=== PATIENT | female | born 1940 | race Caucasian/White ===

== ENCOUNTER 2018-02-16 00:24 | Emergency (ER) | payer MEDICARE ==
[~2018-02-16] VITALS: Ht 157.4 cm; Wt 54.4 kg
[~2018-02-16 00:24] MED LIST: ACETAMINOPHEN-H1 TA2 PO; Elimite 5%60 GM T; MAPAP325 MG PO; Synthroid,Levo50 MCG PO; WALKER
[2018-02-16 01:23] VITALS: BP 160/60
== END 2018-02-16 01:56 | disposition home or self-care (01) ==
LOC: ED 00:24
DX: R25.3 Fasciculation (principal); T43.3X5A Adverse effect of phenothiazine antipsychotics and neuroleptics, initial encounter; Z90.49 Acquired absence of other specified parts of digestive tract; Z98.51 Tubal ligation status; Y92.9 Unspecified place or not applicable

== ENCOUNTER → 2018-02-22 | Outpatient (CLI) | payer MEDICARE | END | disposition home or self-care (01) | LOC: US 12:00 | DX: I65.23 Occlusion and stenosis of bilateral carotid arteries (principal) ==

== ENCOUNTER → 2018-07-17 | Outpatient (CLI) | payer MEDICARE ==
[~2018-07-17] MED LIST changes: +OMEPRAZOLE MAGN20 MG PO
--- NOTE | ~2018-07-17 | SLPIE ---
[place], [place] SCRUBBING MACHINE OPERATOR INITIAL EVALUATION NAME: MICHAEL OLIVO UNIT #: [id number] ROOM: DOCTOR: DEMARIO JETT MD Speech Language Pathology Initial Evaluation Page 1 1 of Patient Name: MICHAEL OLIVO Date: 07/17/2018 12:20 PM : 1940 SOC Date: 07/17/2018 [facility] Provider #: [id number] Treating Clinician: CLEVELAND Michel-MEREDITH Referring Physician: DEMARIO JETT Patient Information Address: [address] [place] [address] Physician: DEMARIO JETT Physician #: City, [facility], Zip: [place], [place] [address] Occupation: Unknown # of Approved Visits: 0 Gender: Female Rn Patient Care: TIFFANY OLIVO Medicare #: [id number] Rehabilitation Information / History Onset Date Code Description Primary Diagnosis: 07/17/2018 A0000 NO DIAGNOSIS SENT TO THE [facility] Subjective Comments: Initial evaluation created to initiate the electronic medical record. Please see Vig[employer] for details. Rehabilitation Information / History Clinical Findings Functional Goals Functional Limitation Reporting Swallowing G8996 - Swallowing functional limitation, current status at therapy episode outset and at reporting intervals Current Status: CH - 0 percent impaired, limited or restricted G8997 - Swallowing functional limitation, projected goal status, at therapy episode outset, at reporting intervals, and at discharge or to end reporting Goal Status: CI - At least 1 percent but less than 20 percent impaired, limited or restricted G8998 - Swallowing functional limitation, discharge status, at discharge from therapy or to end reporting Discharge Status: CH - 0 percent impaired, limited or restricted 07/17/2018 12:21:09 PM ANA Michel Date/Time [place], [place] SCRUBBING MACHINE OPERATOR INITIAL EVALUATION NAME: MICHAEL OLIVO UNIT #: [id number] ROOM: DOCTOR: DEMARIO JETT MD [facility] License #: [id number] CM:YAYA 22 [facility]
--- NOTE | ~2018-07-17 | SLPPOC ---
[place], [place] EDITOR SOUND PLAN OF CARE NAME: MICHAEL OLIVO UNIT #: [id number] ROOM: DOCTOR: DEMARIO JETT MD Speech Language Pathology Plan of Care Page 1 1 (Initial Evaluation) of Patient Name: MICHAEL OLIVO Date: 07/17/2018 12:20 PM : 1940 SOC Date: 07/17/2018 [facility] Provider #: [id number] Treating Clinician: CLEVELAND Michel-EDITOR SOUND Referring Physician: DEMARIO JETT Medicare #: [id number] Visits From SOC: Onset Date Description Code Primary Diagnosis: 07/17/2018 A0000 NO DIAGNOSIS SENT TO THE [facility] Subjective Comments: Initial evaluation created to initiate the electronic medical record. Please see RightScale for details. Initial Level Goals Functional Limitation Reporting Swallowing G8996 - Swallowing functional limitation, current status at therapy episode outset and at reporting intervals Current Status: CH - 0 percent impaired, limited or restricted G8997 - Swallowing functional limitation, projected goal status, at therapy episode outset, at reporting intervals, and at discharge or to end reporting Goal Status: CI - At least 1 percent but less than 20 percent impaired, limited or restricted G8998 - Swallowing functional limitation, discharge status, at discharge from therapy or to end reporting Discharge Status: CH - 0 percent impaired, limited or restricted 07/17/2018 12:21:09 PM DEMARIO JETT Date/Time CLEVELAND Michel-MEREDITH Date I certify the need for these services furnished under this plan of treatment while under my care. State License #: [id number] CM:SLPPOC 1224 1223 [facility] THER[facility]
--- NOTE | ~2018-07-17 | PROC NOTE ---
[place], [place] PROCEDURE NOTE NAME: MICHAEL OLIVO UNIT #: [id number] ROOM: DOCTOR: BARBARA CAMEJO BIRTHDATE: [birth year] DOS: 07/17/2018 MODIFIED BARIUM SWALLOW ORDERING PHYSICIAN: Dr. Frey. RADIOLOGIST: Dr. Cordova. BACKGROUND INFORMATION: The patient is an 78-year-old female who is seen for modified barium swallow. This test was ordered to view the pharyngeal phase of the swallow. The patient was alert and oriented for the study and reported a feeling of globus for the past several months, which at times results in vomiting to get the foods up. The patient did report a history of reflux. Oral peripheral examination revealed presence of upper denture with adequate fit reported. Lingual, labial, and buccal skills were within normal limits in terms of strength, range of motion, and coordination. The patient was able to volitionally cough and swallow. Respiratory status was within normal limits. The patient reported that she currently consumes a regular diet and thin liquids. METHODS AND MATERIALS USED FOR THE EXAM: The patient was positioned in the lateral plane and the exam was viewed under fluoroscopy. The patient was presented with a variety of consistencies to assess swallowing skills including applesauce mixed with barium presented in half teaspoon amounts, barium-coated cookie and sandwich taken in bite size pieces and thin liquid barium taken by cup. ORAL PHASE: Unremarkable. PHARYNGEAL PHASE: Unremarkable. ESOPHAGEAL PHASE: This phase of the swallow was not formally assessed during this exam. IMPRESSIONS AND RECOMMENDATIONS: Based upon assessment results, this 78-year-old patient presented with oral and pharyngeal swallowing skills that are within normal limits. Recommend she remain on present diet and continue to implement safe swallow precautions such as small bites and sips, chewing thoroughly, alternating liquids and solids and moistening foods as appropriate. Recommend patient follow reflux precautions as well. Speech Pathology followup is not warranted. Follow up with physician is recommended to further assess esophageal functioning. Results and recommendations were shared with the patient who verbalized understanding. Thank you very much for this referral. Should you have any questions regarding this patient, please contact the speech pathologist at [phone]. [place], [place] PROCEDURE NOTE NAME: MICHAEL OLIVO UNIT #: [id number] ROOM: DOCTOR: BARBARA CAMEJO BIRTHDATE: [birth year] BARBARA CAMEJO CM:PROCNOTE:PROCEDURE NOTE [id number] DEMARIO CAMEJO
--- NOTE | ~2018-07-17 | SLPPN ---
[place], [place] SORTING COWS WORKER PROGRESS NOTE NAME: MICHAEL OLIVO UNIT #: [id number] ROOM: DOCTOR: DEMARIO JETT MD Speech Language Pathology Treatment Note Page 1 1 of Patient Name: MICHAEL OLIVO Date: 07/17/2018 12:21 PM : 1940 SOC Date: 07/17/2018 [facility] Provider #: [id number] Treating Clinician: CLEVELAND Michel-SORTING COWS WORKER Referring Physician: DEMARIO JETT Onset Date Description Code Primary Diagnosis: 07/17/2018 A0000 NO DIAGNOSIS SENT TO THE [facility] Time In: 10:30 AM Time Out: 11:30 AM SORTING COWS WORKER Interventions and CPT Codes Consisted of: CPT Code Modifiers Minutes Units MOTION FLUOROSCOPY/SWALLOW 60211 60 1 Total Minutes: 60 Total Timed Minutes: 0 Total Untimed Minutes: 60 Total Units: 1 Total Timed Units: 0 Total Untimed Units: 1 07/17/2018 12:22:00 PM CLEVELAND Michel-MEREDITH Date/Time State License #: [id number] CM:VIN 1224 1224 [facility] THER[facility]
== END | disposition home or self-care (01) ==
LOC: RAD/SH 09:54
DX: R13.10 Dysphagia, unspecified (principal)

== ENCOUNTER → 2019-03-05 | Day surgery (SDC) | payer MEDICARE ==
[~2019-03-05] VITALS: Ht 157.4 cm; Wt 53.5 kg
--- NOTE | ~2019-03-05 | O ---
[place], [place] OPERATIVE NOTE NAME: MICHAEL OLIVO [facility] #: [id number] UNIT #: [id number] ROOM: DOCTOR: SURENDRA OLIVO MD BIRTHDATE: [birth year] DOS: 03/05/2019 PREOPERATIVE DIAGNOSIS: Cataract, left eye. POSTOPERATIVE DIAGNOSIS: Cataract, left eye. OPERATION: Extracapsular cataract extraction by phacoemulsification with posterior chamber intraocular lens implantation, left eye. ANESTHESIA: Monitored standby. OPERATIVE FINDINGS AND PROCEDURE: 2% Xylocaine topical anesthetic gel was applied to the eye in the preop area. The patient was taken to the operating room and prepped and draped in the standard fashion for sterile intraocular surgery. A time out procedure was performed verifying correct patient, correct site and corrects lens with Willi Olivo M.D. The operating microscope was swung into position and the lid speculum was inserted. Using a 15-degree angulated super blade, a paracentesis was made through clear cornea. Shugarcaine, a mixture of lidocaine and epinephrine, was injected into the anterior chamber. Viscoelastic was used to fill the anterior chamber. Using a metal keratome a 2.4 mm self-sealing clear corneal cataract incision was made temporally at the limbus. Using a pre-bent 25 gauge cystotome needle, a standard continuous curvilinear capsulorrhexis was performed. The anterior capsule was removed with forceps. The lens nucleus was hydrodissected and phacoemulsified in the posterior chamber. Cortical material was removed with the irrigation aspiration hand piece and the posterior capsule was then polished with a curet under irrigation. The posterior chamber and capsular bag were filled with viscoelastic. A posterior chamber intraocular lens manufactured by: [employer], Model #[id number], 19.0 diopters in strength were then inserted into the posterior chamber and within the capsular bag using the lens cartridge and injector system. Viscoelastic was removed using the irrigation aspiration handpiece. The anterior chamber was filled with balanced salt solution through the paracentesis. Both the paracentesis site and cataract incisions were hydrated with BSS and verified to be water-tight and self-sealing. Cefuroxime 1 mg/0.1 mL was injected into the anterior chamber through the paracentesis site. The incision checked to be water-tight using a Weck-Juli sponge. The integrity of the cataract wound and ocular tension were checked. Lid speculum and drapes were removed. The patient was transferred from the operating room to the recovery room in satisfactory condition. [place], [place] OPERATIVE NOTE NAME: MICHAEL OLIVO UNIT #: [id number] ROOM: DOCTOR: SURENDRA OLIVO MD BIRTHDATE: [birth year] SURENDRA OLIVO MD CM:OPRECORD:OPERATIVE NOTE 1346 1643 SURENDRA OLIVO MD 03/05/19 1641 interface
[2019-03-05 13:17] VITALS: BP 145/56
[2019-03-05 13:44] VITALS: BP 122/38
[2019-03-05 13:59] VITALS: BP 114/57
[2019-03-05 14:13] VITALS: BP 130/57
== END | disposition home or self-care (01) ==
LOC: SDC 02-28 08:45
DX: H25.812 Combined forms of age-related cataract, left eye (principal); K21.9 Gastro-esophageal reflux disease without esophagitis; M19.90 Unspecified osteoarthritis, unspecified site; Z88.8 Allergy status to other drugs, medicaments and biological substances; Z79.82 Long term (current) use of aspirin; Z79.899 Other long term (current) drug therapy; Z98.890 Other specified postprocedural states; Z98.51 Tubal ligation status; Z90.49 Acquired absence of other specified parts of digestive tract; Z85.3 Personal history of malignant neoplasm of breast; Z80.52 Family history of malignant neoplasm of bladder

== ENCOUNTER → 2019-04-09 | Day surgery (SDC) | payer MEDICARE ==
[~2019-04-09] VITALS: Ht 157.4 cm; Wt 53.5 kg
--- NOTE | ~2019-04-09 | O ---
[place], [place] OPERATIVE NOTE [id number] UN[facility] #: [id number] ROOM: DOCTOR: SURENDRA OLIVO MD BIRTHDATE: [birth year] DOS: 04/09/2019 PREOPERATIVE DIAGNOSIS: Cataract, right eye. POSTOPERATIVE DIAGNOSIS: Cataract, right eye. OPERATION: Extracapsular cataract extraction by phacoemulsification with posterior chamber intraocular lens implantation, right eye. . ANESTHESIA: Monitored standby. OPERATIVE FINDINGS AND PROCEDURE: 2% Xylocaine topical anesthetic gel was applied to the eye in the preop area. The patient was taken to the operating room and prepped and draped in the standard fashion for sterile intraocular surgery. A time out procedure was performed verifying correct patient, correct site and corrects lens with Willi Olivo M.D. The operating microscope was swung into position and the lid speculum was inserted. Using a Sharona paracentesis blade, a paracentesis was made through clear cornea. A mixture preservative-free lidocaine 4% and preservative-free epinephrine 1:1000 in balanced salt solution was injected into the anterior chamber. Viscoelastic was used to fill the anterior chamber. Using a metal keratome a 2.4 mm self-sealing clear corneal cataract incision was made temporally at the limbus. Using a pre-bent 25 gauge cystotome needle, a standard continuous curvilinear capsulorrhexis was performed. The anterior capsule was removed with forceps. The lens nucleus was hydrodissected and phacoemulsified in the posterior chamber. Cortical material was removed with the irrigation aspiration hand piece and the posterior capsule was then polished with a curet under irrigation. The posterior chamber and capsular bag were filled with viscoelastic. A posterior chamber intraocular lens manufactured by: [employer], Model #[id number], and 18.5 diopters in strength were then inserted into the posterior chamber and within the capsular bag using the lens cartridge and injector system. Viscoelastic was removed using the irrigation aspiration handpiece. The anterior chamber was filled with balanced salt solution through the paracentesis. Both the paracentesis site and cataract incisions were hydrated with BSS and verified to be water-tight and self-sealing. Cefuroxime 1 mg/0.1 mL was injected into the anterior chamber through the paracentesis site. The incision checked to be water-tight using a Weck-Juli sponge. The integrity of the cataract wound and ocular tension were checked. Lid speculum and drapes were removed. The patient was transferred from the operating room to the recovery room in satisfactory condition. [place], [place] OPERATIVE NOTE NAME: MICHAEL OLIVO UNIT #: [id number] ROOM: DOCTOR: SURENDRA OLIVO MD BIRTHDATE: [birth year] SURENDRA OLIVO MD CM:OPRECORD:OPERATIVE NOTE 1419 1650 SURENDRA OLIVO MD 04/09/19 1651 interface
[2019-04-09 12:40] VITALS: BP 148/48
[2019-04-09 13:32] VITALS: BP 132/49
[2019-04-09 13:45] VITALS: BP 140/54
[2019-04-09 13:58] VITALS: BP 134/59
== END | disposition home or self-care (01) ==
LOC: SDC 04-07 11:45
DX: H25.811 Combined forms of age-related cataract, right eye (principal); K21.9 Gastro-esophageal reflux disease without esophagitis; Z98.890 Other specified postprocedural states; Z85.3 Personal history of malignant neoplasm of breast; Z79.899 Other long term (current) drug therapy; Z80.52 Family history of malignant neoplasm of bladder

== ENCOUNTER → 2020-03-17 | Outpatient (CLI) | payer MEDICARE ==
[~2020-03-17] MED LIST changes: +ASPIRIN81 M1 PO; +MULTIVITAMIN1 EACH PO; +VITAMIN B12-FO1 EACH PO; +VITAMIN C500 M4 PO; +VITAMIN D375 MCG PO
--- NOTE | 2020-03-17 08:04 | NUR ---
INFORMED CONSENT OBTAINED FOR A LEXISCAN STRESS TEST WITH DR. MONTANO. RESTING EKG NSR WITH A HT RT OF 68, BP OF 122/60. BREATH SOUNDS CLEAR JOSH, POX 96% VIA RA. COMPLETED ONE MINUTE OF A LEXISCAN PROTOCOL RECEIVING LEXISCAN 0.4 MG OVER 10 SECONDS. C/O NAUSEA AND BEING SHAKEY THAT WAS RELIEVED IN RECOVERY. HAD A PEAK HT RT OF 92, WITH A BP OF 130/48. LAST RECOVERY HT RT OF 83, WITH A BP OF 120/62. AWAITING NUCLEAR IMAGING IN STABLE CONDITION.
== END | disposition home or self-care (01) ==
LOC: CARD 00:39
DX: R07.9 Chest pain, unspecified (principal); R53.81 Other malaise

== ENCOUNTER → 2023-02-02 | Outpatient (CLI) | payer MEDICARE ==
[~2023-02-02] MED LIST changes: +ATORVASTATIN CA40 M1 PO; +METOPROLOL SUCC25 M2 PO; +OMNICEF300 MG PO
[2023-02-02 14:22] LABS: BUN 14 mg/dl (9-23)
== END | disposition home or self-care (01) ==
LOC: LAB 13:27
PROVIDERS: ATTEND Specialist
DX: R42 Dizziness and giddiness (principal)

== ENCOUNTER → 2023-02-09 | Outpatient (CLI) | payer MEDICARE | END | disposition home or self-care (01) | LOC: MRI 00:46 | PROVIDERS: ATTEND Specialist | DX: I67.89 Other cerebrovascular disease (principal); R42 Dizziness and giddiness ==

== ENCOUNTER → 2024-01-01 | Outpatient (CLI) | payer MEDICARE ==
[~2024-01-01] MED LIST changes: +ATIVAN0.5 MG PO; +DEPAKOTE ER250 MG PO; +GOOD SENSE ASP325 MG PO; +OMEPRAZOLE40 MG PO; +TRAZODONE50 MG PO
== END | disposition home or self-care (01) ==
LOC: US 01:25
PROVIDERS: ATTEND Physician Assistant
DX: R74.8 Abnormal levels of other serum enzymes (principal); Z90.49 Acquired absence of other specified parts of digestive tract

== ENCOUNTER → 2024-01-10 | Outpatient (CLI) | payer MEDICARE ==
[2024-01-10 11:15] LABS: TOTAL PROTEIN 7.1 gm/dL (6.0-8.0)
[2024-01-11 03:07] LABS: ALKALINE PHOSPHATASE, SERUM 417 IU/L (44-121)
[2024-01-11 17:07] LABS: BONE FRACTION 23 % (14-68); INTESTINAL FRACTION 1 % (0-18); LIVER FRACTION 76 % (18-85)
== END | disposition home or self-care (01) ==
LOC: LAB 10:23
PROVIDERS: ATTEND Physician Assistant
DX: R10.9 Unspecified abdominal pain (principal)

== ENCOUNTER → 2024-05-06 | Outpatient (CLI) | payer MEDICARE ==
[2024-05-06 13:10] LABS: TOTAL PROTEIN 6.6 gm/dL (6.0-8.0)
[2024-05-07 04:07] LABS: ALPHA-1-ANTITRYPSIN, SERUM 148 mg/dL (101-187); IMMUNOGLOBULIN G, QNT 1268 mg/dL (586-1602); IMMUNOGLOBULIN M, QNT 73 mg/dL (26-217)
[2024-05-07 15:07] LABS: ANTI-SMOOTH MUSCLE ANTIBODY 9 Units (0-19)
== END | disposition home or self-care (01) ==
LOC: LAB 12:07
PROVIDERS: ATTEND Physician Assistant
DX: R79.89 Other specified abnormal findings of blood chemistry (principal); Z79.899 Other long term (current) drug therapy

== ENCOUNTER → 2024-06-30 | Outpatient (CLI) | payer MEDICARE ==
[2024-06-30 12:17] LABS: TOTAL PROTEIN 6.9 gm/dL (6.0-8.0)
== END | disposition home or self-care (01) ==
LOC: LAB 11:25
PROVIDERS: ATTEND Physician Assistant
DX: R79.89 Other specified abnormal findings of blood chemistry (principal)

== ENCOUNTER → 2025-01-07 | Outpatient (CLI) | payer MEDICARE ==
[2025-01-07 13:17] LABS: TOTAL PROTEIN 6.7 gm/dL (6.0-8.0)
== END | disposition home or self-care (01) ==
LOC: LAB 12:38
PROVIDERS: ATTEND Physician Assistant
DX: R79.89 Other specified abnormal findings of blood chemistry (principal)

== ENCOUNTER → 2025-02-11 | Outpatient (CLI) | payer MEDICARE ==
[~2025-02-11] MED LIST changes: +LORAZEPAM0.5 M1 PO; +Regadenoson 0.4 MG/5 ML SYR IV ONE; +Technetium Tc 99M Tetrofosmi 0.23 MG KIT IJ SCH
== END | disposition home or self-care (01) ==
LOC: CARD 00:58
PROVIDERS: ATTEND Nurse Practitioner Family
DX: R06.02 Shortness of breath (principal); I10 Essential (primary) hypertension; I63.9 Cerebral infarction, unspecified; R07.89 Other chest pain; R06.09 Other forms of dyspnea

== ENCOUNTER → 2025-05-21 | Outpatient (CLI) | payer MEDICARE ==
[~2025-05-21] MED LIST changes: -Regadenoson 0.4 MG/5 ML SYR IV ONE; -Technetium Tc 99M Tetrofosmi 0.23 MG KIT IJ SCH
== END | disposition home or self-care (01) ==
LOC: CARD 09:49
PROVIDERS: ATTEND Physician Assistant
DX: I49.49 Other premature depolarization (principal)

== ENCOUNTER 2025-05-25 14:31 | Emergency (ER) | payer MEDICARE ==
[~2025-05-25] VITALS: Wt 57.2 kg
[2025-05-25] MEDS ORDERED: SODIUM CHLORIDE 0.9% 1,000 ML IV ONE (14:40)
[2025-05-25 14:45] VITALS: BP 143/75
[2025-05-25 15:06] LABS: BASO # 0.1 10*3/uL (0.0-0.1); BASO % 1.1 % (0.0-1.0); EOS # 0.1 10*3/uL (0.0-0.4); EOS % 2.4 % (1.0-4.0); MEAN CELL VOLUME 95.9 fl (81.0-99.0); MEAN CORPUSCULAR HGB 30.6 pg (27.0-31.0); MEAN PLATELET VOLUME 10.1 fl (9.6-12.3); MONO # 0.5 10*3/uL (0.1-1.0); MONO % 8.8 % (3.0-9.0); NEUT # 2.6 10*3/uL (2.3-7.9); NEUT % 48.8 % (47.0-73.0); NUCLEATED RED BLOOD CELL 0.0 % (0.0-0.0); NUCLEATED RED BLOOD CELL 0.0 10*3/uL (0.0-0.0); PLATELET COUNT AUTOMATED 167 10*3/uL (130-400); RED CELL DISTRI WIDTH 13.5 % (0-14.5)
[2025-05-25 15:25] LABS: BUN 14 mg/dl (9-23)
== END 2025-05-25 16:57 | disposition home or self-care (01) ==
LOC: ED 14:31
PROVIDERS: Emergency Medicine
DX: R55 Syncope and collapse (principal); R11.0 Nausea; E07.9 Disorder of thyroid, unspecified; K21.9 Gastro-esophageal reflux disease without esophagitis; Z86.73 Personal history of transient ischemic attack (TIA), and cerebral infarction without residual deficits; Z90.49 Acquired absence of other specified parts of digestive tract; Z98.890 Other specified postprocedural states; Z88.8 Allergy status to other drugs, medicaments and biological substances